=== PATIENT | male | born 1945 | race Caucasian/White ===

== ENCOUNTER 2016-12-11 12:30 | Emergency (ER) | payer MEDICARE, OTHER ==
[~2016-12-11] VITALS: Ht 177.8 cm; Wt 75.7 kg
--- NOTE | ~2016-12-11 | US85 ---
[facility] A Service [facility] RADIOLOGY TEXT RESULTS PATIENT: TRAVIS MARTINEZ LOCATION: SED : 45 UNIT #: [id number] AGE: [address]: Jero Davidson MD SEX: M ORDER DR: [id number] [address] [address] [id number] MR#: [id number] Acc #: [id number] NAME: TRAVIS MARTINEZ. : 1945 SEX: M STUDY DATE/TIME: 12/11/2016 16:38 UNIT: SED ROOM: STUDY DESCRIPTION: [facility] [employer] Attending Physician: Jero Davidson M.D. Ordering Physician: Jero Davidson M.D. Primary Care Physician: Kevyn Pedro M.D. MEDICAL IMAGING REPORT This report is preliminary unless electronic signature is present. EXAM Right lower extremity duplex Doppler venous ultrasound COMPARISON None INDICATIONS A 70-year-old male with erythema, warmth and swelling of the right lower extremity for 1 week. FINDINGS Exam is limited due to limited patient mobility. The right posterior tibial and peroneal veins are not well seen. Flow is demonstrated in the right anterior tibial vein. Distal right superficial femoral vein is not well seen on hernandez-scale imaging but is demonstrated to be widely patent on color flow imaging. Otherwise the other segments of the right superficial femoral, deep femoral, common femoral, greater saphenous and popliteal veins are fully compressible with internal color flow and expected waveform. IMPRESSION 1. Limited exam due to poor patient mobility. 2. No evidence of superficial or deep venous thrombosis on this study. Dictated by... Sebastián Rosenbaum M.D. THIS IS AN ELECTRONICALLY VERIFIED REPORT [facility] A Service [facility] RADIOLOGY TEXT RESULTS PATIENT: TRAVIS MARTINEZ LOCATION: SED : 45 UNIT #: [id number] AGE: [address]: Jero Davidson MD SEX: M ORDER DR: Sebastián Rosenbaum M.D. at 12/18/2016 6:35 PM Benigno TD: 12/11/2016 23:10 JOB #: [id number] MEDICAL IMAGING REPORT Page 1 of 1
[~2016-12-11 12:30] MED LIST: ASPIRIN PO; C-10001000 M1 PO; ISORDIL PO; LISINOPRIL PO; LOPRESSOR PO; LOTENSIN20 MG PO; NORVASC PO; PLAVIX PO; SIMVASTATIN40 MG PO; VITA EYES PO; ZOCOR PO
[2016-12-11 14:20] LABS: BASOPHIL# 0.1 X10e3 (0-0.3); EOSINOPHIL# 0.5 X10e3 (0-0.7); EOSINOPHIL% 4.7 % (0.0-7.0); HEMATOCRIT 35.2 % (38.0-50.0); HEMOGLOBIN 11.5 gm/dL (13.0-16.0); LYMPHOCYTE# 1.2 X10e3 (1.0-3.5); LYMPHOCYTE% 10.7 % (17.0-45.0); MEAN CELL VOLUME 91.1 FL (83-96); MEAN CORPUSCULAR HEMOGLOBIN 29.9 PG (28-34); MEAN CORPUSCULAR HGB CONC 32.8 g/dL (30-36); MEAN PLATELET VOLUME 7.6 FL (6.5-11.5); MONOCYTE# 1.1 X10e3 (0-1.0); MONOCYTE% 10.3 % (3.0-12.0); NEUTROPHIL% 73.3 % (40-75); PLATELET COUNT 373 X10e3 (140-420); RED BLOOD COUNT 3.86 X10e (3.90-5.60); RED CELL DISTRIBUTION WIDTH 20.3 % (11.0-15.5); WHITE BLOOD COUNT 10.9 X10e3 (4.0-10.5)
[2016-12-11 14:27] LABS: DIFF IND NO
[2016-12-11 14:40] LABS: BUN/CREATININE RATIO 10.86; CALCIUM SERUM 8.7 mg/dL (8.4-10.2); CREATININE SERUM 2.3 mg/dL (0.6-1.4); GLOM FILT RATE Estimated 27.7 mL/min (>60); POTASSIUM 3.2 mmol/L (3.5-5.1)
== END 2016-12-11 18:15 | disposition home or self-care (01) ==
LOC: SED 12:30
PROVIDERS: Emergency Medicine
DX: L03.115 Cellulitis of right lower limb (principal); N28.9 Disorder of kidney and ureter, unspecified; I25.2 Old myocardial infarction; Z88.0 Allergy status to penicillin; Z79.82 Long term (current) use of aspirin; Z79.899 Other long term (current) drug therapy
CPT/HCPCS: 36415; 80048; 83605; 85025; 87040; 93971; 96374; 99284